=== PATIENT | female | born 1995 | race Caucasian/White ===

== ENCOUNTER 2020-12-14 06:41 | Emergency (ER) | payer BC ==
[~2020-12-14] VITALS: Ht 170.2 cm; Wt 58.1 kg
[2020-12-14 06:41] VITALS: BP 122/75
== END 2020-12-14 07:07 | disposition home or self-care (01) ==
LOC: ER 06:45
DX: Z01.812 Encounter for preprocedural laboratory examination (principal); Z20.822 Contact with and (suspected) exposure to COVID-19
CPT/HCPCS: 99283; C9803; U0003